=== PATIENT | male | born 1935 | race Caucasian/White ===

== ENCOUNTER 2018-05-15 12:46 | Day surgery (SDC) | payer MEDICARE, OTHER, SELFPAY ==
[2018-05-14 11:51] VITALS: BMI 27.6
[2018-05-15] VITALS (10 sets, daily range): BP systolic 117–186; BP diastolic 67–97; PULSE 66–95; RESP 12–18; TEMP 36.2–36.6; O2SAT 93–97; BMI 28.3
--- NOTE | 2018-05-15 | DI.RAD.S_ITS ---
PROCEDURE: XR CHEST 1V INDICATIONS: PORT A CATH PLACEMENT TECHNIQUE: One view of the chest was acquired. COMPARISON: None. FINDINGS: Surgical changes and devices: There is a Port-A-Cath on the left with the tip in the SVC. Lungs and pleura: A 6 mm hyperdense nodule is noted in the right lung base, probably an old granuloma. Lungs are otherwise clear. No pleural effusions or pneumothorax. Mediastinum: Mediastinal contours appear normal. Heart size is normal. Bones and chest wall: No suspicious bony lesions. Overlying soft tissues appear unremarkable. IMPRESSION: The tip of the left Port-A-Cath is in the area of SVC. Dictated by: Osmin Bonilla M.D. on 05/15/2018 at 15:52 Approved by: Osmin Bonilla M.D. on 05/15/2018 at 16:02
[2018-05-15] MEDS: LACTATED RINGERS 1,000 ML 42 ML IV (12:59)
--- NOTE | 2018-05-15 13:34 | SUR.OPER ---
Supine on padded OR bed, head on pillow, left arm padded and tucked at side, legs uncrossed, safety belt at thigh, tape over blanket over lower legs .
--- NOTE | 2018-05-15 13:47 | PM.HP.1 ---
History of Present Illness Date Patient Seen: 05/15/18 Time Patient Seen: 13:48 Chief complaint: [id number] Narrative: Unfortunate 82-year-old gentleman with a pancreatic mass. He presents today for power port placement to facilitate chemotherapy. Patient History Medical History Abdominal pain (Acute) Anemia (Acute) Ascites (Acute) Basal cell carcinoma (Acute) Constipation (Acute) Diverticulosis (Acute) Edema (Acute) Hyperlipidemia (Acute) Pancreatic mass (Acute) Prostate cancer (Acute) Skin cancer (Acute) Weight loss (Acute) Surgical History Hx of knee surgery (Acute) Hx of prostatectomy (Acute) Hx of shoulder surgery (Acute) Social History household members: children and none Smoking Status: Former smoker alcohol intake: current Family & Social History Social History: household members children,none Tobacco & Substance use: Smoking Status Former smoker alcohol intake current alcohol intake frequency 0-2 drinks per day Meds Home Medications Medication Instructions Recorded Confirmed Type hydrochlorothiazide 12.5 mg PO BID 05/14/18 05/15/18 History ondansetron 8 mg PO Q8H PRN #30 tab 05/14/18 05/14/18 Rx spironolactone 25 mg PO DAILY 05/14/18 05/15/18 History zolpidem 6.25 mg PO BEDTIME PRN 05/14/18 05/15/18 History Allergies Allergy/AdvReac Type Severity Reaction Status Date / Time No Known Drug Allergies Allergy Verified 05/15/18 13:08 Review of Systems Review of Systems All systems reviewed & are unremarkable except as noted in HPI and below Exam Vital Signs (past 8 hours): - 05/15/18 13:01 Temperature 97.8 F Pulse Rate 95 H Respiratory Rate 18 Blood Pressure 186/97 H Pulse Oximetry 97 Oxygen Delivery Method Room Air Narrative Exam Narrative: Very thin pleasant gentleman in no distress HEENT: Normocephalic, pupils equal round reactive to light accommodation with anicteric sclera Lungs: Clear bilaterally Heart: Regular rate and rhythm Abdomen: Soft with active bowel sounds Extremities: Warm well perfused Assessment & Plan Assessment & Plan narrative: Unfortunate 82-year-old gentleman with a pancreatic mass. We discussed the risks benefits of left subclavian PowerPort placement the patient expressed a desire to complete the procedure.
[2018-05-15] MEDS: CEFAZOLIN 2 GM/100 ML FROZ.PIGGY IV (13:54)
[2018-05-15] MEDS: LIDOCAINE 1% W/EPI INJ 20 ML INJ (14:18)
[2018-05-15] MEDS: BUPIVACAINE 0.5% (PF) VIAL 30 ML INJ (14:19)
[2018-05-15] MEDS: SODIUM CHLORIDE 0.9% FLUSH 20 ML IV (14:21)
--- NOTE | 2018-05-15 14:34 | P.OP_ITS ---
Operative Date/Time/Diagnoses Date of procedure: 05/15/18 Time of procedure: 14:32 Pre-op diagnosis: Pancreatic mass Post-op diagnosis: same Procedure & Clinicians Procedure: Left subclavian PowerPort placement Same procedure as scheduled: Yes Indications: Pancreatic mass Surgeon: Mary Jo Hampton Click Yes if Unassisted: Yes Anesthesia Type: General (Dr. Davis) Operative Notes Findings: Power port in good position in the superior vena cava Closure Type: primary Specimen(s): none sent Prosthetic devices, grafts, tissues, transplants, or devices: Low-profile PowerPort Estimated Blood Loss (mL): 5 Procedure in detail: After obtaining informed consent, the patient was brought to the operating room and placed in the supine position on the operating table. Following successful induction of general endotracheal anesthesia, appropriate padding of all bony prominences, and placement of appropriate monitors, the left chest was prepped and draped in a standard surgical fashion. A timeout was held per SCOAP protocol. A mixture of local anesthetics was infiltrated in the deltopectoral groove on the left side. The right subclavian vein was accessed via the Seldinger technique and a wire was gently placed into the vein. Fluoroscopy was used to verify position of the wire in the subclavian vein. We next created a pocket of approximately 2 cm inferior to the access site of the vein. This was checked for size and found to fit the port nicely. The included tunneling device was used to place the tubing and the pocket connecting it to the access site of the subclavian vein. The tubing was trimmed to an appropriate length and connected to the Port-A-Cath. The Port-A-Cath was sewn into place in the pocket using interrupted Prolene sutures. The pocket was closed in 2 layers. The dilator and introducer were then gently passed over the wire and into the subclavian vein. The wire and dilator were removed leaving only the introducer. The tubing was then placed in the introducer and the introducer removed per multifocal button inspector's directions. The port was then flushed with saline solution and found to be functional and in good position. It was then hep-locked with 2000 units of heparin. The incision was closed in 2 layers with Vicryl and Monocryl sutures. Dermabond was applied to the skin. All sponge, needle, and instrument counts were correct at the conclusion of the case. Patient was allowed to awaken from anesthesia and taken to the post-anesthesia care unit in good condition. Complications: none Condition: stable Disposition: PACU Plan for aftercare: 1. Discharge to home 2. The port is ready for use
== END 2018-05-15 16:05 | disposition home or self-care (01) ==
PROVIDERS: Family Provider Internal Medicine; Visit Provider Surgery
PROC: (CPT 36561; principal; 2018-05-15 13:45)
DX: K86.9 Disease of pancreas, unspecified (principal); Z45.2 Encounter for adjustment and management of vascular access device; D64.9 Anemia, unspecified; E78.5 Hyperlipidemia, unspecified; Z87.891 Personal history of nicotine dependence
CPT/HCPCS: 36561; 71045; 76000; C1788; J0690; J1644; J2250; J2405; J2704; J3010

== ENCOUNTER → 2018-05-16 15:31 | Outpatient (CLI) | payer MEDICARE, OTHER, SELFPAY ==
--- NOTE | 2018-05-16 15:40 | DI.US.S_ITS ---
PROCEDURE: US PARACENTESIS INDICATIONS: PANCREATIC CANCER TECHNIQUE: The indications, alternatives, benefits, risks, and complications of the procedure were explained to the patient. Written informed consent was obtained and placed in the chart. The abdomen and pelvis were examined sonographically, and an appropriate site was chosen for paracentesis. The skin was prepared and draped in the usual sterile fashion, and 1% lidocaine was infiltrated from the skin down through the peritoneal surface. A 19-gauge catheter-covered needle was then introduced into the peritoneal space, the catheter was advanced and the needle was withdrawn, and thereafter peritoneal fluid was withdrawn. The catheter was then removed and a dressing was applied. The fluid was discarded if the clinician did not order diagnostic testing of the fluid. COMPARISON: None. FINDINGS: Access site: Left lower quadrant Needle: One-Step centesis catheter with introducer needle. Fluid volume and description: 5000 cc of serous fluid Fluid sent for diagnostic testing: As requested Medications: 1% lidocaine for local anaesthesia. Complications: None. IMPRESSION: Successful ultrasound-guided paracentesis. Dictated by: Michael Licona M.D. on 05/16/2018 at 17:40 Approved by: Michael iLcona M.D. on 05/16/2018 at 17:40
--- NOTE | 2018-05-16 15:48 | PATH_ITS ---
Note [facility] Accession Number: [id number] TESTS RESULT FLAG UNITS REF RANGE LAB Clinician Provided Cytology Information No. of containers..01 Other (Miscellaneous) [A] 01 ABDOMINAL FLUID DIAGNOSIS: [A] 02 ABDOMINAL FLUID POSITIVE FOR MALIGNANT CELLS. IMMUNOHISTOCHEMISTRY STUDIES PENDING FOR FURTHER CHARACTERIZATION; RESULTS WILL BE REPORTED AN ADDENDUM. COMMENT: A voicemail message was left with Dr. Moya's triage nurse on 05-20-18 at approximately 2:20 p.m. This case was reviewed by my colleague, Dr. Jocelyne Reagan, who concurs with this interpretation. Pathologist ICD10: 02 C25.9 02 Andreea Merchant MD, Pathologist NPI- [id number] 01 Nile De La Torre, Gluing Machine Operator Automatic ([facility] [place] 01 65 CC, YELLOW, CLOUDY /LCS FLAG LEGEND: L-Low Normal,H-High Normal,LL-Alert Low,HH-Alert High <-Panic Low,>-Panic High,A-Abnormal,AA-Critical Abnormal Performed at: 01 =Z [facility] [address], [place] [address] Israel Mcgarry MD, 02 L[facility] [address] [place] [id number] Desi Reagan MD, Performed at: 01 [facility] [address], [place], [place] [id number] MD Israel Mcgarry MD Phone: [phone]
== END ==
PROVIDERS: PCP Internal Medicine
DX: C25.9 Malignant neoplasm of pancreas, unspecified (principal)
CPT/HCPCS: 49083

== ENCOUNTER → 2018-05-29 11:20 | Oncology outpatient (ONC) | payer MEDICARE, OTHER, SELFPAY ==
[2018-05-14 09:30] VITALS: BP 159/89; PULSE 95; RESP 16; TEMP 36.4; O2SAT 96
--- NOTE | 2018-05-14 09:50 | ONC.CONS ---
History of Present Illness - Data of Consult Consult date: 05/14/18 - Consult Narrative Narrative: Diagnosis: Probable metastatic pancreatic cancer History of present illness: Gabino Clement is a 82 year old male who is referred for further evaluation of a newly diagnosed pancreatic mass. The patient reports that over the last couple of months, he has been bothered by a feeling of fullness or pressure in the upper abdomen. He was feeling constipated and was taking laxatives without any improvement in his symptoms. He was having some pain in the flank areas. This was particularly worse if he would cough. It was difficult for him to lie on his side. His appetite has been low and he has been following mostly liquid diet. He denies any nausea or vomiting. No fevers or chills. He has had some abdominal distension. His symptoms were getting progressively worse and because of that he saw his primary physician. He had a CT scan of the abdomen done that showed a mass in the tail of the pancreas. It measured 4.2 x 2.8 x 3.7 cm. There was a large amount of ascites with a nodular infiltration pattern in the omentum and mesentery suspicious for carcinomatosis. He started taking some diuretics and since then has lost about 6 lb that he feels mostly fluid. He notes that his flank pain has diminished although not completely resolved. He has noted some decrease in his exercise tolerance. He is still able to do his own cooking and cleaning. He has family has been helping him with driving. His appetite has been low and he has lost some weight. He has not noticed any adenopathy. His past medical history is notable for prostate cancer with a prior prostatectomy. He has had some prior skin cancers from his forearm. He gets routine iron infusions for history of anemia. He has hyperlipidemia. He has had prior knee and shoulder surgeries. Social history: He is a . He quit smoking between 20 and 30 years ago but prior to that smoked about half a pack of cigarettes daily. He has had occasional alcohol use. 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 Family history is notable for father had prostate cancer. His mother had non-Hodgkin's lymphoma. His brother had cancer as well. CC: Chetan Moya MD Home Medications and Allergies Home Medications Medication Instructions Recorded Confirmed Type hydrochlorothiazide 25 mg PO DAILY 05/14/18 05/14/18 History ondansetron 8 mg PO Q8H PRN #30 tab 05/14/18 Rx spironolactone 25 mg PO DAILY 05/14/18 05/14/18 History zolpidem 6.25 mg PO BEDTIME PRN 05/14/18 05/14/18 History Allergies Allergy/AdvReac Type Severity Reaction Status Date / Time INGREDIENT: NDA - NO KNOWN Allergy Unknown Uncoded 06/06/17 12:03 DRUG ALLERGIES Ibuprofen AdvReac Unknown Uncoded 06/06/17 12:03 Medical History - Social History Smoking Status: Former smoker Alcohol Intake Frequency: 0-2 drinks per day Review of Systems - Patient Self-Reported Symptoms SR ears, nose, mouth, throat issues: Hoarseness SR respiratory issues: Difficulty breathing SR Cardiovascular issues: Chest pain, discomfort, tightness SR Gastrointestinal issues: Poor or no appetite, Change in bowel pattern, Constipation SR Musculoskeletal issues: Muscle weakness SR Endocrine issues: Excessive thirst Constitutional: weight loss, decreased activity level Cardiovascular: no chest pain Respiratory: cough Gastrointestinal: change in appetite, abdominal pain Musculoskeletal: swelling Exam Vital signs: Vital Signs Temp Pulse Resp BP Pulse Ox 05/14/18 09:30 97.6 F 95 H 16 159/89 H 96 Intake and Output 05/13/18 05/14/18 05/14/18 23:59 07:59 15:59 Other: Weight 89.8 kg Patient Weight 05/14/18 23:59 Weight 89.8 kg - Constitutional positive no acute distress, positive average body habitus - Routine HEENT Exam Head: Present: normocephalic, atraumatic Eye: Present: EOMI, PERRL. Absent: conjunctival icterus, scleral injection ENT: Present: mucous membranes moist, oropharynx clear - Routine Neck Exam Present: supple. Absent: lymphadenopathy, thyromegaly - Routine Chest/Breast/Axilla Exam Axillae: Absent: lymphadenopathy - Routine Respiratory Exam Present: Clear to auscultation bilaterally. Absent: rales, wheezes - Routine Cardiovascular Exam Present: RRR, S1, S2. Absent: murmur - Routine Abdominal Exam Present: normoactive bowel sounds, distended. Absent: tenderness, organomegaly, mass - Routine Extremities Exam Present: edema. Absent: cyanosis, clubbing Comments: He has 1 to 2+ bilateral lower extremity edema. - Routine Back/Spine Exam Back/Spine: Absent: paraspinal tenderness, vertebral tenderness - Routine Skin Exam Present: intact. Absent: cyanosis, erythema, petechiae, rash - Routine Neurological Exam Present: alert, oriented X3 - Routine Psychiatric Exam Present: normal affect, normal thought process Assessment and Plan (1) Pancreatic cancer Current visit: Yes Status: Acute 82-year-old man with new diagnosis of probable pancreatic cancer. He has a 4 cm pancreatic tail mass as well as ascites in the appearance of carcinomatosis. We will schedule him for an ultrasound-guided paracentesis with cytology to try and confirm his diagnosis. Today, we discussed the role of chemotherapy and prolonging survival but not to curing metastatic pancreatic cancer. Because of his age, I doubt that he would tolerate FOLFIRINOX and instead we talked about gemcitabine with Abraxane. I pointed out that this was associated with nearly doubling in survival compared to gemcitabine alone. Side effects including alopecia, nausea and vomiting, fatigue and cytopenias as well as risk for infection and neuropathy reviewed with the patient. We also talked about the possibility of supportive care or hospice. The patient does wish to give chemotherapy a try. We will plan on having a port placed. He will go ahead with his paracentesis to confirm diagnosis. I would anticipate that we would be able to start therapy shortly thereafter.
[2018-05-14 10:47] LABS: INR 1.2 (0.9-1.3); Prothrombin Time 13.4 SECONDS (10.1-12.7)
[2018-05-14 10:47] LABS: Add Manual Diff / Slide Review NO; Alanine Aminotransferase 25 IU/L (21-72); Albumin 3.9 g/dL (3.5-5.0); Albumin Globulin Ratio 1.3 (1.0-2.8); Alkaline Phosphatase 100 U/L (38-126); Aspartate Aminotransferase 25 IU/L (17-59); BUN Creatinine Ratio 29.2 (6-22); Basophils Absolute Auto 100 /uL (0-100); Basophils Percent Auto 0.5 % (0-2); Bilirubin Total 0.8 mg/dL (0.2-1.3); Blood Urea Nitrogen 35 mg/dL (9-20); Carbon Dioxide 28 mmol/L (22-32); Chloride 92 mmol/L (98-107); Eosinophils Absolute Auto 100 /uL (0-450); Eosinophils Percent Auto 0.4 % (2-4); Estimated Glomerular Filt Rate 58.3 mL/min (>60); Glucose 172 mg/dL (80-110); HEMOLYSIS < 15 (0-50); Hematocrit 43.2 % (41-53); Hemoglobin 14.5 g/dL (13.5-17.5); Lymphocytes Absolute Auto 700 /uL (1100-4500); Lymphocytes Percent Auto 5.1 % (25-40); Mean Corpuscular HGB Conc 33.6 % (30-36); Mean Corpuscular Hemoglobin 33.9 PG (26-34); Mean Corpuscular Volume 100.7 fL (80-100); Monocytes Absolute Auto 1600 /uL (0-900); Neutrophils Absolute Auto 11000 /uL (1500-7000); Platelet Count 313 X10^3/uL (150-400); Potassium 4.1 mmol/L (3.4-5.1); Red Blood Cell Count 4.29 X10^6/uL (4.5-5.9); Sodium 132 mmol/L (137-145); Total Protein 6.9 g/dL (6.3-8.2); White Blood Cell Count 13.4 X10^3/uL (4.5-11.0)
--- NOTE | 2018-05-14 12:30 | ONC.SCHED ---
Gemcitabin [id number] and Abraxane [id number] [facility] [place]
[2018-05-15 14:33] LABS: Cancer (Carbohydrate) Ag 19-9 3 U/mL (< 34)
--- NOTE | 2018-05-16 15:29 | PC.NURSE ---
Chemo teaching completed with pt. Pt's daughter and son in law present at time of teaching. Discussed tx regimen Gemzar and Abraxane. Informed pt of possible side effects and treatment management. Discussed clinic flow and appointments. Explained follow up appts and lab monitoring. Informed pt s/s of infection and precautions to take during and between treatments/ Pt and family verbalized understanding. All questions answered.
--- NOTE | 2018-05-20 15:57 | PC.NURSE ---
Recv'd a call from Dr Merchant regarding this pts ABD fluid that was sent for testing. She wanted to know if Dr Moya wanted any additional test run at this time. Spoke w/Mariaelena @ [facility] to provide Dr Moya with her contact number and call her if he wanted any further tests. [phone]
--- NOTE | 2018-05-21 14:56 | PC.NURSE ---
Patient's family phoned to discuss symptoms. While on hold for triage, Dr. Moya took the call (wrong extension) and directed family to take patient to ED after discussing symptoms. Patients provider and treatment appointment for 05/22/18 cancelled.
--- NOTE | 2018-05-21 15:15 | PC.NURSE ---
Pt's son-in-law, Jayjay, informed this race and sports book writer that pt is currently in the ER at [facility]. Jayjay requesting pt's lab results from previous visit. Jayjay also requesting to speak to Dr. Moya regarding pt treatment plan. Dr. Moya aware and will contact family.
--- NOTE | 2018-05-22 09:46 | ONC.NAV ---
Description: T/C check-in re: status Activity: Left message for dtr inquiring about pt's current status: is he still hospitalized? D/C plan? Need help with a hospice referral? Requested return call to clarify.
--- NOTE | 2018-05-22 13:51 | ONC.NAV ---
Description: Status check-[facility] inpt Activity: Called [facility] and spoke with the floor nurse re: pt's current status and plan. She states that he had 4.5 liters of fluid drained from his abdomen yesterday, and that he is feeling much more comfortable today. Palliative care has met with him to discuss goals of care moving forward. Pt states that he is wanting to continue with the plan outlined by Dr. Moya to try chemotherapy, which will continue to depend on his functional status by the time he is discharged from the hospital. He stated that he is well versed in hospice services, and feels comfortable with the fact that he will eventually be transferred to hospice when oncologic treatment is no longer showing a benefit. His chart notes indicate a plan for a 3-day hospital stay at this time. Plan: This SENIOR FRONT END DEVELOPER will f/u with pt/dtr once he has been discharged and is ready to schedule here at [facility] for next steps.
[2018-05-29 11:29] VITALS: BP 148/86; PULSE 100; RESP 18; TEMP 36.3; O2SAT 99
--- NOTE | 2018-05-29 11:53 | P.PNONC_ITS ---
PN -Subjective Interval history: Diagnosis: Pancreatic cancer with malignant ascites Previous treatment: None yet. Interval history: The patient is an 82-year-old man who returns today for follow-up. Since his last visit here, he had paracentesis done. Pathology confirmed an adenocarcinoma. He had a port placed. Last week, he developed increasing weakness and fatigue as well as increased abdominal distension. He presented to an emergency room at [facility]. He had another paracentesis done with 4.2 L of fluid removed. There was an elevated white count in concerned that he may have peritonitis. He was treated with antibiotics. Since his hospital discharge, his strength and energy level have improved slightly. His appetite has been poor but he is eating. Bowels have been moving normally. He does have some dyspnea on exertion but no shortness of breath at rest. No fevers or chills. He is not having any significant pain. He does wish to go ahead with his chemotherapy. His past medical history is notable for prostate cancer with a prior prostatectomy. He has had some prior skin cancers from his forearm. He gets routine iron infusions for history of anemia. He has hyperlipidemia. He has had prior knee and shoulder surgeries. - Patient Self-Reported Symptoms SR Constitution: Weight loss/gain SR ears, nose, mouth, throat issues: Hoarseness SR respiratory issues: Difficulty breathing SR Cardiovascular issues: Shortness of breath with activity or lying flat SR Gastrointestinal issues: Poor or no appetite, Change in bowel pattern, Constipation SR Musculoskeletal issues: Difficulty walking SR Endocrine issues: Excessive thirst Home Medications and Allergies Home Medications Medication Instructions Recorded Confirmed Type ondansetron 8 mg PO Q8H PRN #30 tab 05/14/18 05/29/18 Rx zolpidem 6.25 mg PO BEDTIME PRN 05/14/18 05/29/18 History lidocaine-prilocaine See Rx Instructions .ROUTE 05/15/18 05/29/18 Rx .COMPLEX #30 gram ondansetron 4 mg PO TID-QID PRN #20 tab 05/15/18 05/29/18 Rx oxycodone-acetaminophen [Percocet] 1 tab PO Q4-6H PRN #30 tab 05/15/18 05/29/18 Rx Allergies Allergy/AdvReac Type Severity Reaction Status Date / Time No Known Drug Allergies Allergy Verified 05/15/18 13:08 Exam Vital signs: Vital Signs Temp Pulse Resp BP Pulse Ox 05/29/18 11:29 97.3 F L 100 H 18 148/86 H 99 Intake and Output 05/28/18 05/29/18 05/29/18 23:59 07:59 15:59 Other: Weight 89.6 kg Patient Weight 05/29/18 23:59 Weight 89.6 kg - Constitutional positive average body habitus, positive chronically ill appearing Comments: He is in a wheelchair - Routine HEENT Exam Head: Present: normocephalic, atraumatic Eye: Present: EOMI, PERRL. Absent: conjunctival icterus, scleral injection ENT: Present: mucous membranes moist, oropharynx clear - Routine Neck Exam Present: supple. Absent: lymphadenopathy, thyromegaly - Routine Chest/Breast/Axilla Exam Chest wall exam standard: Absent: tenderness Axillae: Absent: lymphadenopathy - Routine Respiratory Exam Present: Clear to auscultation bilaterally. Absent: rales, wheezes Comments: There are diminished breath sounds at the right base. - Routine Cardiovascular Exam Present: RRR, S1, S2, murmur Comments: He has a 2/6 systolic murmur. - Routine Abdominal Exam Present: soft, distended. Absent: tenderness, organomegaly, mass - Routine Extremities Exam Present: edema. Absent: cyanosis, clubbing Comments: He has 1 to 2+ bilateral lower extremity edema. - Routine Skin Exam Present: intact. Absent: petechiae, rash - Routine Neurological Exam Present: alert, oriented X3 - Routine Psychiatric Exam Present: normal affect, normal thought process Results - Labs Laboratory Last Values WBC 13.4 X10^3/uL (4.5-11.0) H 05/14/18 09:59 RBC 4.29 X10^6/uL (4.5-5.9) L 05/14/18 09:59 Hgb 14.5 g/dL (13.5-17.5) 05/14/18 09:59 Hct 43.2 % (41-53) 05/14/18 09:59 MCV 100.7 fL (80-100) H 05/14/18 09:59 MCH 33.9 PG (26-34) 05/14/18 09:59 MCHC 33.6 % (30-36) 05/14/18 09:59 RDW 13.0 % (11.6-14.8) 05/14/18 09:59 Plt Count 313 X10^3/uL (150-400) 05/14/18 09:59 Neut % (Auto) 82.0 % (50-75) H 05/14/18 09:59 Lymph % (Auto) 5.1 % (25-40) L 05/14/18 09:59 Hays % (Auto) 12.0 % (3-14) 05/14/18 09:59 Eos % (Auto) 0.4 % (2-4) L 05/14/18 09:59 Baso % (Auto) 0.5 % (0-2) 05/14/18 09:59 Neut # (Auto) 90268 /uL (6891-0770) H 05/14/18 09:59 Lymph # (Auto) 700 /uL (8684-5611) L 05/14/18 09:59 Hays # (Auto) 1600 /uL (0-900) H 05/14/18 09:59 Eos # (Auto) 100 /uL (0-450) 05/14/18 09:59 Baso # (Auto) 100 /uL (0-100) 05/14/18 09:59 PT 13.4 SECONDS (10.1-12.7) H 05/14/18 10:08 INR 1.2 (0.9-1.3) 05/14/18 10:08 Sodium 132 mmol/L (137-145) L 05/14/18 09:59 Potassium 4.1 mmol/L (3.4-5.1) 05/14/18 09:59 Chloride 92 mmol/L (98-107) L 05/14/18 09:59 Carbon Dioxide 28 mmol/L (22-32) 05/14/18 09:59 BUN 35 mg/dL (9-20) H 05/14/18 09:59 Creatinine 1.20 mg/dL (0.66-1.25) 05/14/18 09:59 Estimated GFR 58.3 mL/min (>60) L 05/14/18 09:59 BUN/Creatinine Ratio 29.2 (6-22) H 05/14/18 09:59 Glucose 172 mg/dL (80-110) H 05/14/18 09:59 Calcium 9.0 mg/dL (8.4-10.2) 05/14/18 09:59 Total Bilirubin 0.8 mg/dL (0.2-1.3) 05/14/18 09:59 AST 25 IU/L (17-59) 05/14/18 09:59 ALT 25 IU/L (21-72) 05/14/18 09:59 Alkaline Phosphatase 100 U/L (38-126) 05/14/18 09:59 Total Protein 6.9 g/dL (6.3-8.2) 05/14/18 09:59 Albumin 3.9 g/dL (3.5-5.0) 05/14/18 09:59 Globulin 3.0 g/dL (1.7-4.1) 05/14/18 09:59 Albumin/Globulin Ratio 1.3 (1.0-2.8) 05/14/18 09:59 CA 19-9 Antigen 3 U/mL (< 34) 05/14/18 09:59 Assessment and Plan (1) Pancreatic cancer Current visit: Yes Status: Acute 82-year-old man with new diagnosis of pancreatic cancer with malignant ascites. He appears to have a recurrence of his abdominal fluid with his abdomen be distended and firm. Will get him scheduled for another ultrasound-guided paracentesis. I think would be helpful to set that up for weekly procedure. We did discuss the possibility of having a drainage catheter placed. The advantage doing this would that would allow easier drainage. The potential downside would be risk for infection. He does wish to go ahead with his chemotherapy and if he responds, his ascites should potentially improve. Will continue with just regular ultrasound-guided drainage at this point. We again reviewed potential side effects of chemotherapy. I did point out that for patients with decreased performance status, risks are higher than average and likely the benefit is somewhat lower but he still does wish to give it a try. We will plan on starting soon as can be practically arranged. Side effects of treatment including alopecia nausea vomiting myelosuppression risk for infection fatigue change in taste and appetite reviewed with the patient. He will return to clinic in about 1 week for follow-up.
[2018-05-29 12:28] LABS: INR 1.2 (0.9-1.3); Prothrombin Time 13.6 SECONDS (10.1-12.7)
[2018-05-29] MEDS: DEXAMETHASONE 10 MG/ML VIAL 8 MG IV (12:39)
--- NOTE | 2018-05-29 12:57 | ONC.NAV ---
*Pt received a Chemo Quilt today.
[2018-05-29] MEDS: ONDANSETRON 8 MG in SODIUM CHLORIDE 0.9% 50 ML 216 ML IV (12:58)
--- NOTE | 2018-05-29 13:04 | CM.SWNOTE ---
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 Pt was recently discharged from [facility], where he had been receiving IV antibiotics and paracentesis. He also had a consult with the [facility] [employer] MANAGER, Brooklyn Mayen, who assisted pt in decision making/goals conversation. Pt had decided at that time that he wanted to pursue chemotherapy, rather than hospice, until such time that aggressive treatment becomes futile. Pt's primary caregiver and family contact is his dtr, Lam. Pt identifies no immediate needs at this time. Plan: Monitor for adjustment to treatment, support and assistance needs.
[2018-05-29] MEDS: SODIUM CHLORIDE 0.9% IV ×2 (13:34→14:32)
[2018-05-29] MEDS: PACLITAXEL PROTEIN BOUND IV (13:34)
[2018-05-29] MEDS: GEMCITABINE HCL IV (14:32)
--- NOTE | 2018-06-05 09:40 | ONC.NAV ---
*Sent bereavement card.
== END ==
PROVIDERS: Family Provider Internal Medicine
DX: Z51.11 Encounter for antineoplastic chemotherapy (principal); C25.9 Malignant neoplasm of pancreas, unspecified; R18.0 Malignant ascites; D64.9 Anemia, unspecified; Z85.46 Personal history of malignant neoplasm of prostate; Z85.828 Personal history of other malignant neoplasm of skin
CPT/HCPCS: 80053; 85025; 85610; 86301; 96375; 96413; 96417; 99204; 99214; J1100; J2405; J9201; J9264